=== PATIENT | female | born 2000 | race Caucasian/White ===

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

== ENCOUNTER 2019-02-07 11:59 | Emergency (ER) | payer OTHER ==
[2019-02-07 12:15] VITALS: BMI 21.2
[2019-02-07 12:31] LABS: URINE APPEARANCE SLCLOUDY; URINE BILIRUBIN NEGATIVE (<2.0 mg/dL); URINE COLOR YELLOW; URINE GLUCOSE (UA) NEGATIVE (NEGATIVE); URINE KETONE 2+ (NEGATIVE); URINE LEUK ESTERASE 1+ (NEGATIVE); URINE NITRITE NEGATIVE (NEGATIVE); URINE PROTEIN NEGATIVE (NEGATIVE)
[2019-02-07] MEDS ORDERED: ONDANSETRON 4 MG/2 ML VIAL IVPUSH ONE ×2 (12:38→15:56)
[2019-02-07] MEDS ORDERED: SODIUM CHLORIDE 0.9% 1000 ML INFUS.BAG IV ONE (12:38)
[2019-02-07] MEDS ORDERED: FAMOTIDINE 20 MG/50 ML IVPB 20 MG/50 ML MG IVPB ONE ×2 (12:38→12:47)
[2019-02-07] MEDS ORDERED: ONDANSETRON 4 MG/2 ML VIAL ONE ×2 (12:47→16:01)
--- NOTE | 2019-02-07 13:01 | PDOC ---
History of Present Illness - General Chief Complaint: Pain, Acute Stated Complaint: VOMITING/ABD PAIN Time Seen by Provider: 02/07/19 12:30 History Source: Patient Exam Limitations: No Limitations - History of Present Illness Initial Comments: 02/07/19 12:54 18F with a PMH of appendectomy 1 year ago who presents to the ER with 3 days of nausea, vomiting, and abdominal pain. The patient states that she has epigastric and b/l LQ pressure like, intermittent, atraumatic abdominal pain. She states that she had a fever on the first day but has not had a fever since. She denies discharge, dysuria, bloody or bilious vomiting, hematuria, hematochezia, and melena. She is sexually active. LMP 1 month ago. Past History - Past Medical History Allergies/Adverse Reactions: Allergies Allergy/AdvReac Type Severity Reaction Status Date / Time No Known Allergies Allergy Verified 02/07/19 12:12 Home Medications: Ambulatory Orders Doxycycline Hyclate 100 mg PO BID #27 tablet 02/07/19 Anemia: No Asthma: No Cancer: No Cardiac Disorders: No CVA: No COPD: No CHF: No Dementia: No Diabetes: No GI Disorders: No Disorders: No HTN: No Hypercholesterolemia: No Liver Disease: No Seizures: No Thyroid Disease: No - Surgical History Abdominal Surgery: No Appendectomy: Yes Cardiac Surgery: No Cholecystectomy: No Lung Surgery: No Neurologic Surgery: No Orthopedic Surgery: No - Immunization History Immunization Up to Date: Yes - Suicide/Smoking/Psychosocial Hx Smoking History: Never smoked Have you smoked in the past 12 months: No Hx Alcohol Use: No Drug/Substance Use Hx: No Substance Use Type: None Hx Substance Use Treatment: No Review of Systems - Review of Systems Able to Perform ROS?: Yes Comments:: 02/07/19 13:49 GENERAL/CONSTITUTIONAL: No fever or chills. No weakness. HEAD, EYES, EARS, NOSE AND THROAT: No change in vision. No ear pain or discharge. No sore throat. CARDIOVASCULAR: No chest pain, palpitations, or lightheadedness. RESPIRATORY: No cough, wheezing, shortness of breath, or hemoptysis. GASTROINTESTINAL: + for nausea, vomiting, and abdominal pain. No diarrhea or constipation. GENITOURINARY: No dysuria, frequency, hematuria, or change in urination. MUSCULOSKELETAL: No joint or muscle swelling or pain. No neck or back pain. SKIN: No rash or lesions. NEUROLOGIC: No headache, numbness, tingling, focal weakness, loss of consciousness, or change in strength/sensation. Is the patient limited [place] proficient: No *Physical Exam - Vital Signs Last Vital Signs Temp Pulse Resp BP Pulse Ox 98.5 F 109 H 16 116/79 100 02/07/19 12:13 02/07/19 12:13 02/07/19 12:13 02/07/19 12:13 02/07/19 12:13 - Physical Exam Comments: 02/07/19 13:52 GENERAL: Well developed, well nourished. Awake and alert. No acute distress. HEENT: Normocephalic, atraumatic. Hearing grossly normal. Moist mucous membranes. PERRLA, EOMI. No conjunctival pallor. Sclera are non-icteric. NECK: Supple. Full ROM. No JVD. CARDIOVASCULAR: Regular rate and rhythm. No murmurs, rubs, or gallops. PULMONARY: No evidence of respiratory distress. Lungs clear to auscultation bilaterally. No wheezing, rales or rhonchi. ABDOMINAL: Soft. TTP over RUQ and suprapubic abdomen. Non-distended. No rebound or guarding. GENITOURINARY: No CVA tenderness bilaterally. PELVIC: Normal external genitalia. Mild CMT. No adnexal tenderness. Mild midline tenderness. MUSCULOSKELETAL: Normal range of motion at all joints. No bony deformities or tenderness. EXTREMITIES: No cyanosis. No clubbing. No edema. No calf tenderness or swelling. SKIN: Warm and dry. Normal capillary refill. No rashes. No jaundice. NEUROLOGICAL: Alert, awake, appropriate. Cranial nerves 2-12 grossly intact. Normal speech. Gait is normal without ataxia. PSYCHIATRIC: Cooperative. Good eye contact. Appropriate mood and affect. Moderate Sedation - Procedure Monitoring Vital Signs: Procedure Monitoring Vital Signs Temperature 98.5 F 02/07/19 12:13 Pulse Rate 109 H 02/07/19 12:13 Respiratory Rate 16 02/07/19 12:13 Blood Pressure 116/79 02/07/19 12:13 O2 Sat by Pulse Oximetry (%) 100 02/07/19 12:13 ED Treatment Course - LABORATORY CBC & Chemistry Diagram: 02/07/19 12:54 02/07/19 12:54 - ADDITIONAL ORDERS Additional order review: Laboratory Results 02/07/19 12:10 Urine Color Yellow Urine Appearance Slcloudy Urine pH 5.0 Ur Specific [place] 1.026 Urine Protein Negative Urine Glucose (UA) Negative Urine Ketones 2+ H Urine Blood Negative Urine Nitrite Negative Urine Bilirubin Negative Urine Urobilinogen 2.0 H Ur Leukocyte Esterase 1+ H Medical Decision Making - Medical Decision Making 02/07/19 14:51 The patient is a 18F with a PMH of appy 1 year ago who presents with nausea, vomiting, and fever 3 days ago. Pelvic exam remarkable for mild CMT and midline tenderness. Will treat for suspected PID and give PCP f/u. Labs WNL. UA shows 1+ LE with negative upreg. 02/07/19 16:47 Pt continued to not tolerate PO. Will scan abdomen and pelvis to r/o other causes of n/v. 02/07/19 19:26 CTAP negative. WIll PO challenge. 02/07/19 19:41 Pt tolerated PO. Will d/c with PCP f/u. *DC/Admit/Observation/Transfer Diagnosis at time of Disposition: Nausea and vomiting Qualifiers: Vomiting type: unspecified Vomiting Intractability: unspecified Qualified Code( s): R11.2 - Nausea with vomiting, unspecified - Discharge Dispostion Disposition: HOME Condition at time of disposition: Stable Decision to Admit order: No - Prescriptions Prescriptions: Doxycycline Hyclate 100 mg PO BID #27 tablet - Referrals - Patient Instructions Printed Discharge Instructions: DI for Abdominal Pain-Adult, DI for Nausea -- Adult Additional Instructions: Your ER visit is not complete until your follow up with your primary care physician. Please follow up with your primary care physician in 1-2 days. Please take your medications as prescribed. Please return to the ER if you have any signs or symptoms of chest pain, shortness of breath, uncontrollable fever, chills, nausea, vomiting, numbness, tingling, or weakness in any part of your body, changes in vision, or slurred speech. Please return to the ER if symptoms persist, worsen, or new symptoms arise. - Post Discharge Activity
[2019-02-07 13:18] LABS: BASO % 0.7 % (0-2.0); HEMATOCRIT 39.3 % (32.4-45.2); HEMOGLOBIN 13.6 GM/dL (10.7-15.3); LYMPH % 32.4 % (8-40); MCH 30.7 pg (25.7-33.7); MCHC 34.6 g/dl (32.0-36.0); MEAN CELL VOLUME 88.8 fl (80-96); MEAN PLT VOLUME 8.2 fl (7.5-11.1); MONO % 6.7 % (3.8-10.2); NEUT % 59.2 % (42.8-82.8); PLATELET COUNT 295 K/MM3 (134-434); RBC 4.43 M/mm3 (3.60-5.2); RDW 12.7 % (11.6-15.6); WHITE BLOOD COUNT 6.5 K/mm3 (4.0-10.0)
[2019-02-07 13:29] LABS: ALBUMIN 4.3 g/dl (3.4-5.0); ALK PHOS 77 U/L (45-117); ANION GAP 7 MMOL/L (8-16); BILIRUBIN,TOTAL 0.6 mg/dL (0.2-1); BLOOD UREA NITROGEN 17 mg/dL (7-18); CALCIUM 9.7 mg/dL (8.5-10.1); CHLORIDE 109 mmol/L (98-107); CO2 25 mmol/L (21-32); CREATININE 0.9 mg/dL (0.55-1.3); GLUCOSE,RANDOM 72 mg/dL (74-106); LIPASE 80 U/L (73-393); POTASSIUM 4.7 mmol/L (3.5-5.1); SGOT/AST 15 U/L (15-37); SGPT/ALT 17 U/L (13-61); SODIUM 140 mmol/L (136-145); TOT PROT 8.4 g/dl (6.4-8.2)
[2019-02-07] MEDS ORDERED: DOXYCYCLINE HYCLATE 100 MG CAPSULE PO ONE ×2 (14:19→14:24)
[2019-02-07 14:23] LABS: HCG,QUALITATIVE URINE Negative
--- NOTE | 2019-02-07 15:21 | PDOC ---
Attending Attestation - Resident Resident Name: Trevor Potter - ED Attending Attestation I have performed the following: I have examined & evaluated the patient, The case was reviewed & discussed with the resident, I agree w/resident's findings & plan, Exceptions are as noted - HPI HPI: 02/07/19 15:16 The patient is a 18 year old female, with no past medical history, who presents to the emergency department with 3 days of nausea, vomiting, and abdominal pain. Patient describes her abdominal pain as intermittent, pressure-like, localized to the epigastrum and bilateral lower quadrants. She denies recent fevers, chills, headache or dizziness. She denies recent diarrhea or constipation. She denies recent dysuria, frequency, urgency or hematuria. She denies recent chest pain or shortness of breath. Allergies: NKDA Past surgical history: Appendectomy (2018). Social history: Nonsmoker. Denies EtOH use and recreational drug use. LMP: January 2019 - Physicial Exam PE: 02/07/19 15:18 GENERAL: Awake, alert, and fully oriented, in no acute distress. HEAD: No signs of trauma EYES: PERRLA, EOMI, sclera anicteric, conjunctiva clear ENT: Auricles normal inspection, hearing grossly normal, nares patent, oropharynx clear without exudates. Moist mucosa NECK: Nontender, no stepoffs, Normal ROM, supple, no lymphadenopathy, JVD, or masses LUNGS: Breath sounds equal, clear to auscultation bilaterally. No wheezes, and no crackles HEART: Regular rate and rhythm, normal S1 and S2, no murmurs, rubs or gallops ABDOMEN: + epigastric TTP, mild suprapubic TTP EXTREMITIES: Normal range of motion, no edema. No clubbing or cyanosis. No cords, erythema, or tenderness NEUROLOGICAL: Cranial nerves II through XII intact. 5/5 strength and sensation in all extremities, Normal speech, normal gait, normal cerebellar function SKIN: Warm, Dry, normal turgor, no rashes or lesions noted. : + CMT, no abnormal discharge or bleeding, no adnexal tenderness or masses - Medical Decision Making 02/07/19 15:19 18 F with abdominal pain, N+V for 3 days. Will r/o pancreatitis vs cholecystitis. Pt with no signs of bowel obstruction on exam. Has had prior appy. Will tx for PID as pt with + CMT on exam. - Labs, UA, UPT - RUQ sono - GI cocktail - Abx 02/07/19 15:24 Labs wnl UA consistent with UTI US negative 02/07/19 19:18 CT negative Pt reassessed after GI cocktail - now feels much better. Able to tolerate PO Pt is well appearing, with normal vitals. Clinically stable for DC at this time. I discussed the physical exam findings, ancillary test results and final diagnoses with the patient. I answered all of the patient's questions. The patient was satisfied with the care received and felt comfortable with the discharge plan and treatment plan. The patient agrees to follow up with the primary care physician within 24-72 hours.
[2019-02-07 16:10] LABS: EPI CELLS 1+ /HPF (FEW)
[2019-02-07 16:11] LABS: URINE BACTERIA 1+ /hpf (NONE SEEN)
[2019-02-07 19:58] VITALS: BP 131/76; PULSE 82; TEMP 97.7
== END 2019-02-07 20:12 | disposition home or self-care (01) ==
LOC: JER 11:59
PROC: 3E02329 Introduction of Other Anti-infective into Muscle, Percutaneous Approach (ICD-10-PCS; principal; 2019-02-07)
PROC: 3E033GC Introduction of Other Therapeutic Substance into Peripheral Vein, Percutaneous Approach (ICD-10-PCS; 2019-02-07)
PROC: 3E033GC Introduction of Other Therapeutic Substance into Peripheral Vein, Percutaneous Approach (ICD-10-PCS; 2019-02-07)
DX: N73.8 Other specified female pelvic inflammatory diseases (principal); N39.0 Urinary tract infection, site not specified; R11.2 Nausea with vomiting, unspecified
CPT/HCPCS: 36415; 74177-TC; 76705-TC; 80053; 81003; 81015; 83690; 84703; 85025; 96365; 96372; 96375; 96376; 99283-25; J7030

== ENCOUNTER 2019-08-01 14:53 | Emergency (ER) | payer OTHER ==
[2019-08-01 15:02] VITALS: BP 105/69; PULSE 83; TEMP 98; BMI 20.2
--- NOTE | 2019-08-01 16:20 | PDOC ---
History of Present Illness <Megan Emanuel - Last Filed: 08/01/19 17:36> - General History Source: Patient - History of Present Illness Timing/Duration: reports: intermittent Quality: reports: cramping <Fahad Shukla Last Filed: 08/01/19 20:45> - General Chief Complaint: Pain Stated Complaint: ABD PAIN/VOMITING Time Seen by Provider: 08/01/19 16:05 Past History <Megan Emanuel - Last Filed: 08/01/19 17:36> - Past Medical History Anemia: No Asthma: No Cancer: No Cardiac Disorders: No CVA: No COPD: No CHF: No Dementia: No Diabetes: No GI Disorders: No Disorders: No HTN: No Hypercholesterolemia: No Liver Disease: No Seizures: No Thyroid Disease: No - Surgical History Abdominal Surgery: No Appendectomy: Yes Cardiac Surgery: No Cholecystectomy: No Lung Surgery: No Neurologic Surgery: No Orthopedic Surgery: No - Immunization History Immunization Up to Date: Yes - Suicide/Smoking/Psychosocial Hx Smoking History: Never smoked Have you smoked in the past 12 months: No Hx Alcohol Use: No Drug/Substance Use Hx: No Substance Use Type: None Hx Substance Use Treatment: No <Jodi ShuklaMala Last Filed: 08/01/19 20:45> - Past Medical History Allergies/Adverse Reactions: Allergies Allergy/AdvReac Type Severity Reaction Status Date / Time No Known Allergies Allergy Verified 08/01/19 15:02 Home Medications: Ambulatory Orders Doxycycline Hyclate 100 mg PO BID #27 tablet 02/07/19 Ondansetron [Zofran -] 4 mg PO QID PRN #14 tablet 02/07/19 Review of Systems - Review of Systems Constitutional: No: Chills, Fever ABD/GI: Yes: Nausea, Abdominal cramping. No: Vomiting : No: Dysuria, Flank Pain, Hematuria <Fahad Shukla Last Filed: 08/01/19 20:45> *Physical Exam - Vital Signs Last Vital Signs Temp Pulse Resp BP Pulse Ox 98 F 83 18 105/69 99 08/01/19 14:59 08/01/19 14:59 08/01/19 14:59 08/01/19 14:59 08/01/19 14:59 <Megan Emanuel - Last Filed: 08/01/19 17:36> - Vital Signs Last Vital Signs Temp Pulse Resp BP Pulse Ox 98 F 83 18 105/69 99 08/01/19 14:59 08/01/19 14:59 08/01/19 14:59 08/01/19 14:59 08/01/19 14:59 - Physical Exam General Appearance: Yes: Appropriately Dressed. No: Apparent Distress HEENT: positive: Normal Voice Neck: positive: Supple Respiratory/Chest: negative: Respiratory Distress Gastrointestinal/Abdominal: positive: Tender (minmal ttp to periumbilicus and mid lower abd, NT over mcburneys), Soft Musculoskeletal: negative: CVA Tenderness Integumentary: positive: Dry, Warm Neurologic: positive: Fully Oriented, Alert, Normal Mood/Affect <Fahad Shukla - Last Filed: 08/01/19 20:45> ED Treatment Course - ADDITIONAL ORDERS Additional order review: Laboratory Results 08/01/19 08/01/19 16:50 16:50 Urine Color Yellow Urine Appearance Clear Urine pH 6.0 Ur Specific [place] 1.033 Urine Protein Negative Urine Glucose (UA) Negative Urine Ketones 2+ H Urine Blood Negative Urine Nitrite Negative Urine Bilirubin Negative Urine Urobilinogen 1.0 Ur Leukocyte Esterase Trace Urine WBC (Auto) 6 Urine Casts (Auto) 15 U Epithel Cells (Auto) 5.5 Urine Bacteria (Auto) 50.0 Urine HCG, Qual Positive <Megan Emanuel - Last Filed: 08/01/19 17:36> Medical Decision Making - Medical Decision Making The patient was seen and evaluated in conjunction with midlevel provider under my direct supervision, ancillary studies were reviewed. I agree with the plan as outlined HOLLY shukla. HPI, workup/dispo as outlined. VS reviewed, wnl. UA unremarkable, f/u culture sono with live IUP anticipate discharge, pcp followup, return precautions 08/01/19 17:36 <Megan Emanuel - Last Filed: 08/01/19 17:36> - Medical Decision Making 08/01/19 17:23 18 yo F, , ~5-6 weeks by dates, here w/ lower abd pain w/ nausea x 2 days. Tested + on home preg test 1 week ago. No as of yet. Denies vag bleed, dysuria, f/c See exam Abd pain in 1st trimester Exam unremarkable -US -ua -labs -anticipate dc w/ OB f/u 08/01/19 20:37 US w/ +IUP @ 5 weeks w/ FHR. Beta > 7K. UA w/ no e/o infxn. Stable for dc w/ [facility] f/u next week <Fahad Shukla - Last Filed: 08/01/19 20:45> *DC/Admit/Observation/Transfer <Megan Emanuel - Last Filed: 08/01/19 17:36> <Fahad Shukla - Last Filed: 08/01/19 20:45> Diagnosis at time of Disposition: Abdominal pain affecting - Discharge Dispostion Disposition: HOME Condition at time of disposition: Good - Patient Instructions Additional Instructions: Her ultrasound showed an intrauterine at about 5 weeks with heart activity. Your beta today was over 7211. Your urine showed no evidence of infection. Her blood type is O+. Please follow up with obgyn hospitalist physician at: [employer] [facility] [place], [place]
[2019-08-01 17:14] LABS: EPI CELLS 5.5 /HPF (0-5/HPF); HYALINE CASTS 15 /lpf (0-8); URINE APPEARANCE CLEAR; URINE BILIRUBIN NEGATIVE (NEGATIVE); URINE COLOR YELLOW; URINE GLUCOSE (UA) NEGATIVE (NEGATIVE); URINE KETONE 2+ (NEGATIVE); URINE LEUK ESTERASE TRACE (NEGATIVE); URINE NITRITE NEGATIVE (NEGATIVE); URINE PROTEIN NEGATIVE (NEGATIVE); URINE WBC 6 /hpf (0-5)
[2019-08-01 20:23] LABS: URINE RBC 3.7 /hpf (0-4)
== END 2019-08-01 20:52 | disposition home or self-care (01) ==
LOC: JER 14:53
DX: O26.891 Other specified pregnancy related conditions, first trimester (principal); R10.30 Lower abdominal pain, unspecified; Z3A.01 Less than 8 weeks gestation of pregnancy
CPT/HCPCS: 36415; 76817-TC; 81003; 84702; 84703; 86850; 86900; 86901; 99284-25

== ENCOUNTER 2020-01-24 19:25 | Emergency (ER) | payer OTHER ==
[2020-01-24 20:03] VITALS: BP 110/73; PULSE 88; TEMP 97.8; BMI 23.9
[2020-01-24] MEDS ORDERED: ACETAMINOPHEN 500 MG TABLET (FP) PO ONE (21:03)
[2020-01-24] MEDS ORDERED: ACETAMINOPHEN 325 MG TABLET (FP) ONE (21:06)
--- NOTE | 2020-01-24 21:32 | PDOC ---
History of Present Illness - General Chief Complaint: Ear Problem Stated Complaint: RT EAR PAIN Time Seen by Provider: 01/24/20 20:04 History Source: Patient Exam Limitations: No Limitations - History of Present Illness Initial Comments: 01/24/20 21:27 HISTORY OF PRESENT ILLNESS: This a 19-year-old woman is currently 29 weeks gestation with her first who presents emergency department for evaluation of sore throat, rhinorrhea, right ear pain, moist productive cough for the past 2 days. She reports having chills but denies any fevers. Patient uses ear buds and headphones intermittently. She denies any direct trauma. She denies HEEL SORTER complaints at this time No recent travel or sick contacts. PAST MEDICAL HISTORY: Denies past medical history SURGICAL HISTORY: Denies ALLERGIES: No known drug allergies REVIEW OF SYSTEMS General/Constitutional: Denies fever. Denies weakness, weight change. HEENT: Denies change in vision. Right ear pain without discharge. +sore throat. Cardiovascular: Denies chest pain or shortness of breath. Respiratory: Moist productive cough. Denies wheezing, or hemoptysis. Gastrointestinal: Denies nausea, vomiting, diarrhea or constipation. Denies rectal bleeding. Genitourinary: Denies dysuria, frequency, or change in urination. Musculoskeletal: Denies neck or back pain. Skin and breasts: Denies rash or easy bruising. Neurologic: Denies headache, vertigo, loss of consciousness, or loss of sensation. Psychiatric: Denies depression or anxiety. Endocrine: Denies increased thirst. Denies abnormal weight change. Hematologic/Lymphatic: Denies anemia, easy bleeding, or history of blood clots. Allergic/Immunologic: Denies hives or skin allergy. Denies latex allergy. PHYSICAL EXAM General Appearance: Well-appearing, appropriately dressed. No apparent distress , no intoxication. HEENT: EOMI, PERRLA, normal voice, TMs retracted bilaterally. No conjunctival pallor. No photophobia, scleral icterus. Oropharynx erythematous without lesions or exudate. Cobblestoning noted in the posterior. Clear nasal discharge present. Neck: Supple. Trachea midline. No tenderness, rigidity, carotid bruit, stridor , or thyromegaly. Nontender anterior cervical lymphadenopathy present. Respiratory/Chest: Lungs CTAB. No shortness of breath, chest tenderness, respiratory distress, accessory muscle use. No crackles, rales, rhonchi, stridor , wheezing, dullness Cardiovascular: RRR. S1, S2. No JVD, murmur, bradycardia, tachycardia. Vascular Pulses: Dorsalis-Pedis (R): 2+, Dorsalis-Pedis (L): 2+ Gastrointestinal/Abdominal: Normal bowel sounds. Abdomen soft, non-distended. No tenderness or rebound tenderness. No organomegaly, pulsatile mass, guarding, hernia, hepatomegaly, splenomegaly. Musculoskeletal/Extremities: Normal inspection. FROM of all extremities, normal capillary refill. Pelvis Stable. No CVA tenderness. No tenderness to extremities, pedal edema, swelling, erythema or deformity. Integumentary: Appropriate color, dry, warm. No cyanosis, erythema, jaundice or rash Neurologic: greige goods examiner II-XII intact. Fully oriented, alert. Appropriate mood/affect. Motor strength 5/5. No appreciable EOM palsy, facial droop or sensory deficit. 01/24/20 21:36 Past History - Past Medical History Allergies/Adverse Reactions: Allergies Allergy/AdvReac Type Severity Reaction Status Date / Time tomato Allergy Severe Swelling Verified 01/24/20 20:03 Home Medications: Ambulatory Orders Pnv No.95/Ferrous Fum/Folic AC [ Formula] 1 each PO DAILY 11/30/19 Anemia: No Asthma: No Cancer: No Cardiac Disorders: No CVA: No COPD: No CHF: No Dementia: No Diabetes: No GI Disorders: No Disorders: No HTN: No Hypercholesterolemia: No Liver Disease: No Seizures: No Thyroid Disease: No - Surgical History Abdominal Surgery: No Appendectomy: Yes Cardiac Surgery: No Cholecystectomy: No Lung Surgery: No Neurologic Surgery: No Orthopedic Surgery: No - Immunization History Immunization Up to Date: Yes - Psycho Social/Smoking Cessation Hx Smoking History: Never smoked Have you smoked in the past 12 months: No Information on smoking cessation initiated: No Hx Alcohol Use: No Drug/Substance Use Hx: No Substance Use Type: None Hx Substance Use Treatment: No *Physical Exam - Vital Signs Last Vital Signs Temp Pulse Resp BP Pulse Ox 97.8 F 88 18 110/73 100 01/24/20 20:00 01/24/20 20:00 01/24/20 20:00 01/24/20 20:00 01/24/20 20:00 ED Treatment Course - Medications Given in the ED: ED Medications Discontinued Medications Generic Name Dose Route Start Last Admin Trade Name Rody PRN Reason Stop Dose Admin Acetaminophen 975 mg 01/24/20 21:03 01/24/20 21:07 Tylenol - PO 01/24/20 21:04 975 mg ONCE ONE Administration Medical Decision Making - Medical Decision Making 01/24/20 21:30 A/P: 19-year-old woman with upper respiratory symptoms and right ear pain for 2 days TMs retracted bilaterally No mastoid or tragal tenderness noted No discharge or drainage present External auditory canals clear without erythema or exudates present Cobblestoning present in the posterior aspect of the oropharynx Clear nasal discharge present Influenza testing Tylenol 975 mg orally Reassess 01/24/20 21:31 Influenza testing is negative. I will discharge patient home with instructions to take Tylenol as well as increased hydration. Patient has been instructed to follow-up with her primary doctor for continued evaluation. I discussed the physical exam findings, ancillary test results and final diagnoses with the patient. I answered all of the patient's questions. The patient was satisfied with the care received and felt comfortable with the discharge plan and treatment plan. The patient will call their primary care physician within 24 hours to arrange follow-up and will return to the Emergency Department with any new, persistent or worsening symptoms. Portions of this note have been documented using voice recognition software. As a result, errors may occur in the glove wrapper process. Effort has been made to correct all grammatical and glove wrapper error, but some may have been missed which may produce sporadic inaccurate glove wrapper or nonsensical phrases. Discharge - Discharge Information Problems reviewed: Yes Clinical Impression/Diagnosis: URI (upper respiratory infection) Qualifiers: URI type: unspecified URI Qualified Code(s): J06.9 - Acute upper respiratory infection, unspecified Condition: Fair Disposition: HOME - Admission No - Follow up/Referral - Patient Discharge Instructions Additional Instructions: Rest, drink lots of fluids: Teas, water, soups, Pedialyte Saltwater gargles Steamy showers/seem to face break up mucus Avoid contact with others until fevers and cough resolved Lots of handwashing and good hygiene Continue [id number] medications for symptomatic relief Tylenol for fever and pain Followup with private physician in one to 2 days as needed Return to emergency department for worsened symptoms, fevers, dehydration El descanso, beber muchos lquidos: ts, agua, sopas, Pedialyte grgaras de agua salada Duchas Steamy / parecen enfrentar aflojar la mucosidad Evite el contacto con otras personas hasta que la fiebre y la tos resueltos Un montn de lavado de saba y la higiene Continuar [id number] medicamentos para el alivio sintomtico Tylenol para la fiebre y el dolor Followup con el mdico privado en [place] o 2 fontenot segn sea necesario Regresar a urgencias por sntomas empeoraron, fiebres, deshidratacin - Post Discharge Activity
== END 2020-01-24 21:36 | disposition home or self-care (01) ==
LOC: JERFT 19:25
DX: O99.89 Other specified diseases and conditions complicating pregnancy, childbirth and the puerperium (principal); J06.9 Acute upper respiratory infection, unspecified; Z3A.29 29 weeks gestation of pregnancy; Z91.018 Allergy to other foods
CPT/HCPCS: 87804; 99282-25